=== PATIENT | male | born 1975 | race Caucasian/White ===

== ENCOUNTER 2019-11-25 15:50 | Emergency (ER) | payer OTHER ==
[~2019-11-25] VITALS: Ht 167.6 cm; Wt 77.1 kg
[~2019-11-25 15:50] MED LIST: ALTACE2.5 MG; OSEL75CA PO; TUSSI PRES-B L120 M1 PO
[2019-11-25] MEDS ORDERED: DOLOGEN CAPLET1 EACH PO (18:59)
[2019-11-25] MEDS ORDERED: TUSNEL LIQUID178 ML PO (18:59)
[2019-11-25] MEDS ORDERED: ZITHROMAX500 MG PO (18:59)
== END 2019-11-25 19:14 | disposition home or self-care (01) ==
LOC: ER 15:50
DX: J06.9 Acute upper respiratory infection, unspecified (principal)

== ENCOUNTER 2022-01-30 23:25 | Emergency (ER) | payer OTHER ==
[~2022-01-30] VITALS: Ht 170.2 cm; Wt 72.6 kg
[~2022-01-30 23:25] MED LIST changes: +DOLOGEN CAPLET1 EACH PO; +TUSNEL LIQUID178 ML PO; +ZITHROMAX500 MG PO
[2022-01-30] MEDS ORDERED: ATORVASTATIN CA10 MG (23:47)
[2022-01-30] MEDS ORDERED: HYDROCHLOROTHIA25 MG (23:47)
[2022-01-30] MEDS ORDERED: NORVASC5 MG (23:47)
[2022-01-31] MEDS ORDERED: CEPHALEXIN500 MG PO (03:21)
[2022-01-31] MEDS ORDERED: CENTANY30 GM TOP (03:21)
== END 2022-01-31 03:50 ==
LOC: ER 23:25
DX: S61.210A Laceration without foreign body of right index finger without damage to nail, initial encounter (principal); W31.2XXA Contact with powered woodworking and forming machines, initial encounter; Y93.9 Activity, unspecified; Y92.9 Unspecified place or not applicable; Y99.9 Unspecified external cause status; I10 Essential (primary) hypertension

== ENCOUNTER → 2024-11-28 | Emergency (ER) | payer OTHER ==
[~2024-11-28] VITALS: Ht 167.6 cm; Wt 77.1 kg
[~2024-11-28] MED LIST changes: +ATORVASTATIN CA10 MG; +CENTANY30 GM TOP; +CEPHALEXIN500 MG PO; +GILTUSS COUGH-118 M1 PO; +GUAIFEN/DEXTROMETHORPHAN/PE 10 ML BLIST.PACK PO ONE; +GUAIFENESIN/DEXTROMETHORPHAN 100MG/10ML BLIST.PACK PO ONE; +HYDROCHLOROTHIA25 MG; +NORVASC5 MG; +ZITHROMAX TRI-500 MG PO
[2024-11-28 12:02] LABS: HEMATOCRIT 44.2 % (39.0-48.0); HEMOGLOBIN 15.2 g/dL (13-16.00); MEAN CELL VOLUME 83.9 fL (80.0-100.00); MEAN CORPUSCULAR HEMOGLOBIN 28.9 pg (27.00-32.0); MEAN CORPUSCULAR HGB CONC 34.4 g/dl (32.0-36.0); PLATELET COUNT 227 K/uL (150-450); RED BLOOD COUNT 5.27 M/uL (4.00-6.00); RED CELL DISTRIBUTION WIDTH 13.7 % (11.5-14.5)
== END | disposition home or self-care (01) ==
LOC: ER 10:31
PROVIDERS: Preventive Medicine Public Health & General Preventive Medicine
DX: J06.9 Acute upper respiratory infection, unspecified (principal); Z20.822 Contact with and (suspected) exposure to COVID-19; I10 Essential (primary) hypertension